=== PATIENT | female | born 1990 | race Caucasian/White ===

== ENCOUNTER 2016-07-19 10:52 | Emergency (ER) | payer SELFPAY ==
[~2016-07-19] VITALS: Ht 157.5 cm; Wt 92.0 kg
[~2016-07-19 10:52] MED LIST: ACET325S8 PO
[2016-07-19 11:01] VITALS: BP 201/127; PULSE 62; RESP 16; TEMP 97.9; O2SAT 98
[2016-07-19] MEDS ORDERED: DEXAMETHASONE SOD PHOS 20 MG/5 ML VIAL IM ONE (11:30)
[2016-07-19] MEDS ORDERED: diphenhydrAMINE HCL 50 MG CAP PO ONE (11:30)
[2016-07-19] MEDS ORDERED: FAMOTIDINE 20 MG TAB PO ONE (11:30)
[2016-07-19] MEDS ORDERED: BENA25TA3 PO (11:31)
[2016-07-19] MEDS ORDERED: FAMO1TAB37 PO (11:31)
[2016-07-19] MEDS ORDERED: PRED20 PO (11:31)
[2016-07-19] MEDS ORDERED: EPIP0.3I SQ (11:31)
--- NOTE | 2016-07-19 11:31 | PD ---
HPI Chief Complaint: Allergic/Adverse Reaction Time Seen by Provider: 11:16 Travel History International Travel<30 days: No Contact w/Intl Traveler<30days: No Traveled to known affect area: No History of Present Illness HPI Patient is a 25-year-old female who presents to emergency room with complaints of allergic reaction to face. Patient reports that she has very sensitive skin , reports that she brought "natural facemask" from [employer] yesterday and applied this to her face. Patient reports that she woke up this morning with swollen eyes and a swollen face. Reports no vision changes or any drainage from her eyes. Patient denies any respiratory compromise, reports that she does not feel short of breath, she does not feel as if her throat is closing in on her. Reports that she has not used any new products other than this facemask. Patient denies taking any Benadryl prior to arrival to his room. PFSH Past Medical History Medical History: Denies Significant Hx Diminished Hearing: No ?: Not LMP: 06/19/16 : 0 Para: 0 Miscarriage: 0 : 0 Past Surgical History Surgical History: No Previous Surgery Family History Family History: Negative Social History Alcohol Use: No Tobacco Use: No Substance Use: No Allergies-Medications (Allergen,Severity, Reaction): Coded Allergies: No Known Allergies (Unverified , 07/19/16) Reported Meds & Prescriptions Reported Meds & Active Scripts Active Epipen 2-Trent Inj (Epinephrine) 0.3 Mg/0.3 Ml Pfpen 0.3 Mg SQ ONCE PRN Pepcid (Famotidine) 20 Mg Tab 20 Mg PO BID 5 Days Benadryl Allergy (Diphenhydramine HCl) 25 Mg Tab 25 Mg PO Q6H PRN 5 Days Prednisone 20 Mg Tab 20 Mg PO BID 5 Days Review of Systems General / Constitutional: No: Fever Eyes: No: Visual changes HENT: No: Headaches Cardiovascular: No: Chest Pain or Discomfort Respiratory: No: Shortness of Breath Gastrointestinal: No: Abdominal Pain Genitourinary: No: Dysuria Musculoskeletal: No: Pain Skin: Positive Rash, Positive Itching Neurologic: No: Weakness Psychiatric: No: Depression Endocrine: No: Polydipsia Hematologic/Lymphatic: No: Easy Bruising Physical Exam Narrative GENERAL: No acute distress, nontoxic SKIN: Warm and dry. Patient with erythema throughout face, patient with mild edema to right eyelid. Patient with no drainage, no particular purpura. HEAD: Atraumatic. Normocephalic. EYES: Pupils equal and round. No scleral icterus. No injection or drainage. ENT: No nasal bleeding or discharge. Mucous membranes pink and moist. Uvula midline with no swelling. Posterior pharynx with no swelling. Patient with no respiratory distress, patient talking in full sentences and not drooling on exam NECK: Trachea midline. No JVD. CARDIOVASCULAR: Regular rate and rhythm. No murmur appreciated. RESPIRATORY: No accessory muscle use. Clear to auscultation. Breath sounds equal bilaterally. GASTROINTESTINAL: Abdomen soft, non-tender, nondistended. Hepatic and splenic margins not palpable. MUSCULOSKELETAL: No obvious deformities. No clubbing. No cyanosis. No edema. NEUROLOGICAL: Awake and alert.. Normal speech. PSYCHIATRIC: Appropriate mood and affect; insight and judgment normal. Data Data Last Documented VS Vital Signs Date Time Temp Pulse Resp B/P Pulse Ox O2 Delivery O2 Flow Rate FiO2 07/19/16 11:01 97.9 62 16 201/127 98 Orders Dexamethasone Inj (Decadron Inj) (07/19/16 11:30) Diphenhydramine (Benadryl) (07/19/16 11:30) Famotidine (Pepcid) (07/19/16 11:30) [facility] Medical Decision Making Medical Screen Exam Complete: Yes Emergency Medical Condition: Yes Interpretation(s) Vital Signs Date Time Temp Pulse Resp B/P Pulse Ox O2 Delivery O2 Flow Rate FiO2 07/19/16 11:01 97.9 62 16 201/127 98 Differential Diagnosis Allergic reaction Narrative Course Patient is a 25-year-old female who presents to emergency room with complaints of allergic reaction to her face after using home face mask last night. Patient woke up with increased swelling and redness throughout her face. Patient's with no airway compromise. Patient talking in full sentences, not drooling - no respiratory distress. On evaluation, patient does have erythema throughout her face, there is no periorbital edema. Will give patient steroids as well as Benadryl and Pepcid. Plan to monitor patient and then will reevaluate patient. Patient reevaluated, patient with decreased erythema and swelling to face. Patient with no respiratory compromise, patient was rapidly resolving symptoms. Patient will be discharged with instructions to follow-up with her primary care doctor as well as welder repair. Signs and symptoms of when to return to the emergency room was reviewed patient. Instructions were given to patient and had a use EpiPen, patient understands need to go to nearest emergency room if she administers this medication to herself. Diagnosis Primary Impression: Allergic reaction Qualified Code: T78.40XA - Allergic reaction, initial encounter Patient Instructions: General Instructions Departure Forms: Tests/Procedures, Work Release Enter return to work date: Jul 21, 2016 Additional Instructions: Please take all medications as prescribed Return to the emergency room if symptoms worsen or progress Please follow-up with an welder repair as soon as possible Please follow-up with your primary care doctor Return to emergency room immediately if you administer EpiPen to yourself as you will need cardiac monitoring. Do not use face mask again Med/Other Pt SpecificInfo: Prescription(s) given Scripts Epinephrine Inj (Epipen 2-Trent Inj)0.3 Mg/0.3 Ml Pfpen0.3 Mg SQ ONCE PRN ( ALLERGIC REACTION) #1 PACK Ref 0 Prov:Ly Delatorre DO 07/19/16 Famotidine (Pepcid)20 Mg Tab20 Mg PO BID 5 Days Ref 0 Prov:Ly Delatorre DO 07/19/16 Diphenhydramine (Benadryl Allergy)25 Mg Tab25 Mg PO Q6H PRN (ALLERGIES) 5 Days Ref 0 Prov:Ly Delatorre DO 07/19/16 Prednisone 20 Mg Tab20 Mg PO BID 5 Days Ref 0 Prov:Ly Delatorre DO 07/19/16 Disposition: 01 DISCHARGE HOME Condition: Stable Ly Delatorre DO Jul 19, 2016 11:31
[2016-07-19 12:59] VITALS: BP 200/113
[2016-07-27] MEDS ORDERED: SYNT25TA PO ×2 (14:49→14:51)
[2016-07-27] MEDS ORDERED: HYDR50TA15 PO ×2 (14:49→14:51)
[2016-07-27] MEDS ORDERED: CARD180C5 PO ×2 (14:49→14:51)
[2016-07-27] MEDS ORDERED: POTA20TA5 PO ×2 (14:49→14:51)
[2016-07-27] MEDS ORDERED: LIPI40TA PO ×2 (14:49→14:51)
== END 2016-07-19 13:00 | disposition home or self-care (01) ==
LOC: PHED 10:52
DX: T78.40XA Allergy, unspecified, initial encounter (principal); R22.9 Localized swelling, mass and lump, unspecified; X58.XXXA Exposure to other specified factors, initial encounter
CPT/HCPCS: 96372; 99283; J1100; Q0163

== ENCOUNTER 2016-07-19 20:26 | Inpatient (IN) | payer SELFPAY ==
[~2016-07-19] VITALS: Ht 157.5 cm; Wt 97.4 kg
[~2016-07-19 20:26] MED LIST changes: +BENA25TA3 PO; +EPIP0.3I SQ; +FAMO1TAB37 PO; +PRED20 PO
[2016-07-19 20:38] VITALS: BP 208/130; PULSE 105; RESP 18; TEMP 98.4; O2SAT 97
[2016-07-19 21:38] VITALS: RESP 18; O2SAT 97
[2016-07-19] MEDS ORDERED: SODIUM CHLORIDE 0.9% FLUSH 5 ML FLUSH IVF PRN (21:45)
[2016-07-19] MEDS ORDERED: LORazepam 2 MG/ML VIAL IV PUSH ONE (21:45)
--- NOTE | 2016-07-19 22:09 | PD ---
HPI . Weakness Chief Complaint: General Weakness Time Seen by Provider: 21:22 Travel History International Travel<30 days: No Contact w/Intl Traveler<30days: No Traveled to known affect area: No History of Present Illness HPI Patient presents with the acute onset of weakness. She states this started about 7:30 tonight. She states that she cannot walk. She states that she cannot extend her wrist. Patient was seen earlier today with a localized allergic reaction to her face. She was treated with Benadryl, steroids and Pepcid. Patient reports a known history of high blood pressure but is noncompliant with her medication. [facility] Past Medical History Diminished Hearing: No Hypertension: Yes Immunizations Current: Yes Tetanus Vaccination: Unknown Influenza Vaccination: No ?: Not LMP: Jun : 0 Para: 0 Miscarriage: 0 : 0 Social History Alcohol Use: Yes Tobacco Use: No Substance Use: No Allergies-Medications (Allergen,Severity, Reaction): Uncoded Allergies: PERFUME (Allergy, Severe, Anaphylaxis, 07/19/16) Reported Meds & Prescriptions Reported Meds & Active Scripts Active Epipen 2-Trent Inj (Epinephrine) 0.3 Mg/0.3 Ml Pfpen 0.3 Mg SQ ONCE PRN Pepcid (Famotidine) 20 Mg Tab 20 Mg PO BID 5 Days Benadryl Allergy (Diphenhydramine HCl) 25 Mg Tab 25 Mg PO Q6H PRN 5 Days Prednisone 20 Mg Tab 20 Mg PO BID 5 Days Review of Systems Except as stated in HPI: all other systems reviewed are Neg General / Constitutional: No: Fever, Chills Eyes: No: Blurred Vision Cardiovascular: No: Chest Pain or Discomfort Respiratory: No: Shortness of Breath Neurologic: Positive: Weakness, No: Change in Mentation, Slurred Speech Physical Exam Narrative GENERAL: Patient is awake and alert and does not appear to be in any acute distress. SKIN: Warm and dry. HEAD: Atraumatic. Normocephalic. EYES: Pupils equal and round. ENT: No nasal bleeding or discharge. Mucous membranes pink and moist. NECK: Trachea midline. Neck is supple. CARDIOVASCULAR: Regular rate and rhythm. Heart sounds are normal. RESPIRATORY: No accessory muscle use. Lungs are clear with full air movement throughout. GASTROINTESTINAL: Abdomen soft, non-tender, nondistended. MUSCULOSKELETAL: No obvious deformities. No edema. NEUROLOGICAL: Awake and alert. No obvious cranial nerve deficits. She will not extend her wrist. She will not extend her thumbs. She will not abduct her fingers against resistance. She exhibits weakness of the biceps, triceps and trapezius muscles. She can left her legs up off the bed but can only hold them there for a couple seconds. Normal speech. PSYCHIATRIC: Appropriate mood and affect; insight and judgment normal. Data Data Last Documented VS Vital Signs Date Time Temp Pulse Resp B/P Pulse Ox O2 Delivery O2 Flow Rate FiO2 07/19/16 23:34 98 18 96 Room Air 07/19/16 23:34 196/109 07/19/16 20:38 98.4 Orders Electrocardiogram (07/19/16 21:33) Ed Urine Pregnancytest Poc (07/19/16 21:33) Complete Blood Count With Diff (07/19/16 21:33) Comprehensive Metabolic Panel (07/19/16 21:33) Urinalysis - C+S If Indicated (07/19/16 21:33) Ct Brain W/O Iv Contrast(Rout) (07/19/16 21:33) Ecg Monitoring (07/19/16 21:33) Iv Access Insert/Monitor (07/19/16 21:33) Oximetry (07/19/16 21:33) Sodium Chloride 0.9% Flush (Ns Flush) (07/19/16 21:45) Lorazepam Inj (Ativan Inj) (07/19/16 21:45) Cath For Specimen (07/19/16 21:40) Captopril-Hctz 25-15 Mg (Capozide 25-15 (07/19/16 22:15) Urine Culture (07/19/16 22:20) Ceftriaxone Inj (Rocephin Inj) (07/19/16 23:45) Potassium Chlor 20 Meq Premix (Kcl 20 Me (07/20/16 00:00) Potassium Chloride (Kcl) (07/20/16 00:15) Admit Order (Ed Use Only) (07/20/16 00:21) Morphine Inj (Morphine Inj) (07/20/16 00:30) Labs Laboratory Tests Test 07/19/16 07/19/16 22:05 22:20 White Blood Count 7.6 TH/MM3 Red Blood Count 5.62 MIL/MM3 Hemoglobin 14.7 GM/DL Hematocrit 46.2 % Mean Corpuscular Volume 82.2 FL Mean Corpuscular Hemoglobin 26.1 PG Mean Corpuscular Hemoglobin 31.8 % Concent Red Cell Distribution Width 13.0 % Platelet Count 338 TH/MM3 Mean Platelet Volume 10.1 FL Neutrophils (%) (Auto) 88.6 % Lymphocytes (%) (Auto) 7.8 % Monocytes (%) (Auto) 2.5 % Eosinophils (%) (Auto) 0.7 % Basophils (%) (Auto) 0.4 % Neutrophils # (Auto) 6.7 TH/MM3 Lymphocytes # (Auto) 0.6 TH/MM3 Monocytes # (Auto) 0.2 TH/MM3 Eosinophils # (Auto) 0.1 TH/MM3 Basophils # (Auto) 0.0 TH/MM3 CBC Comment DIFF FINAL Differential Comment Sodium Level 142 MEQ/L Potassium Level 1.7 MEQ/L Chloride Level 99 MEQ/L Carbon Dioxide Level 32.5 MEQ/L Anion Gap 11 MEQ/L Blood Urea Nitrogen 18 MG/DL Creatinine 0.99 MG/DL Estimat Glomerular Filtration 69 ML/MIN Rate Random Glucose 222 MG/DL Calcium Level 9.8 MG/DL Total Bilirubin 0.4 MG/DL Aspartate Amino Transf 19 U/L (AST/SGOT) Alanine Aminotransferase 27 U/L (ALT/SGPT) Alkaline Phosphatase 84 U/L Total Protein 8.1 GM/DL Albumin 3.8 GM/DL Urine Collection Type VOIDED Urine Color YELLOW Urine Turbidity CLOUDY Urine pH 6.5 Urine Specific [place] 1.026 Urine Protein 300 OR GREATER mg/dL Urine Glucose (UA) 250 mg/dL Urine Ketones TRACE mg/dL Urine Occult Blood MOD Urine Nitrite NEG Urine Bilirubin NEG Urine Leukocyte Esterase NEG Urine WBC 3-5 /hpf Urine WBC Clumps OCC Urine Squamous Epithelial >8 /hpf Cells Urine Transitional Epithelial 0-5 /hpf Cells Urine Bacteria MOD /hpf Microscopic Urinalysis Comment CULTURE INDICATED MDM Medical Decision Making Medical Screen Exam Complete: Yes Emergency Medical Condition: Yes Interpretation(s) EKG shows a sinus rhythm. She has left ventricular hypertrophy. She has no old EKGs for comparison. Differential Diagnosis Differential diagnosis of weakness includes but is not limited to infection, CVA , electrolyte disturbance, renal failure, hypoglycemia, UTI, ACS Narrative Course Patient presents with acute muscular weakness. She reports that she is too weak to move her hand but is noted to be using her cell phone without any apparent weakness. CBC & BMP Diagram 07/19/16 22:05 Catheter UA shows moderate bacteria, WBC clumps. Culture is pending. Rocephin has been ordered. I have no explanation for the hypokalemia. She is not on any medications that would cause hypokalemia. She does not report any vomiting or diarrhea. 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 Physician Communication Physician Communication Dr. Baker will admit. Diagnosis Primary Impression: Weakness Additional Impressions: Hypertension Qualified Code: I10 - Essential hypertension Hypokalemia Admitting Information Admitting Physician Requests: Admit Condition: Stable Jenelle Hernandez MD Jul 19, 2016 22:09
[2016-07-19] MEDS ORDERED: CAPTOPRIL PO ONE (22:15)
[2016-07-19] MEDS ORDERED: HYDROCHLOROTHIAZIDE PO ONE (22:15)
[2016-07-19 22:26] VITALS: BP 207/116; PULSE 90; RESP 18; O2SAT 97
[2016-07-19 22:41] LABS: AUTOMATED NEUTROPHIL # 6.7 TH/MM3 (1.8-7.7); BASOPHIL % 0.4 % (0.0-2.0); EOSINOPHIL # 0.1 TH/MM3 (0-0.4); EOSINOPHIL % 0.7 % (0.0-4.0); HEMATOCRIT 46.2 % (35.0-46.0); HEMO FLAGS DIFF FINAL; LYMPH % 7.8 % (9.0-44.0); LYMPHOCYTE # 0.6 TH/MM3 (1.0-4.8); MEAN CELL VOLUME 82.2 FL (80.0-100.0); MEAN CORPUSCULAR HEMOGLOBIN 26.1 PG (27.0-34.0); MEAN CORPUSCULAR HGB CONC 31.8 % (32.0-36.0); MONO % 2.5 % (0.0-8.0); NEUT % 88.6 % (16.0-70.0); PLATELET COUNT 338 TH/MM3 (150-450); RED BLOOD COUNT 5.62 MIL/MM3 (4.00-5.30); WHITE BLOOD COUNT 7.6 TH/MM3 (4.0-11.0)
[2016-07-19 22:41] LABS: GLUCOSE,URINE 250 mg/dL (NEG); KETONE, URINE TRACE mg/dL (NEG); NITRITE,URINE NEG (NEG); PH, URINE 6.5 (5.0-8.5)
[2016-07-19 22:48] LABS: BLOOD, URINE MOD (NEG)
[2016-07-19 22:54] LABS: METHOD OF COLLECTION VOIDED; URINE COLOR YELLOW (YELLW/STRAW)
[2016-07-19 22:57] LABS: BACTERIA, URINE MOD /hpf; SQUAMOUS EPITHELIAL CELL URINE >8 /hpf (0-5); TRANSITIONAL EPI CELLS, URINE 0-5 /hpf
[2016-07-19 22:58] LABS: COMMENT (UR) CULTURE INDICATED; CULTURE IF INDICATED CULTURE INDICATED
[2016-07-19 23:34] VITALS: BP 196/109; PULSE 98; RESP 18; O2SAT 96
[2016-07-19 23:35] LABS: ALKALINE PHOSPHATASE 84 U/L (45-117); ALT (GPT) 27 U/L (10-53); ANION GAP 11 MEQ/L (5-15); AST (GOT) 19 U/L (15-37); BICARBONATE 32.5 MEQ/L (21.0-32.0); BLOOD UREA NITROGEN 18 MG/DL (7-18); CHLORIDE 99 MEQ/L (98-107); GLOMERULAR FILTRATION RATE 69 ML/MIN (>89); SODIUM (NA) 142 MEQ/L (136-145); TOTAL BILIRUBIN ADULT 0.4 MG/DL (0.2-1.0)
[2016-07-19 23:37] LABS: POTASSIUM 1.7 MEQ/L (3.5-5.1)
--- NOTE | 2016-07-19 23:42 | RADHPO ---
EXAM DATE/TIME: 07/19/2016 22:48 [facility] COMPARISON: No previous studies available for comparison. INDICATIONS : Dizziness. Weakness. RADIATION DOSE: 62.60 CTDIvol (mGy) MEDICAL HISTORY : Hypertension. SURGICAL HISTORY : None. ENCOUNTER: Initial ACUITY: 1 day PAIN SCALE: 5/10 LOCATION: cranial TECHNIQUE: Multiple contiguous axial images were obtained of the head. Using automated exposure control and adj ustment of the mA and/or kV according to patient size, radiation dose was kept as low as reasonably a chievable to obtain optimal diagnostic quality images. FINDINGS: CEREBRUM: The ventricles are normal for age. No evidence of midline shift, mass lesion, hemorrhage or acute in farction. No extra-axial fluid collections are seen. POSTERIOR FOSSA: The cerebellum and brainstem are intact. The 4th ventricle is midline. The cerebellopontine angle i s unremarkable. EXTRACRANIAL: The visualized portion of the orbits is intact. SKULL: The calvaria is intact. No evidence of skull fracture. CONCLUSION: 1. No evidence of acute intracranial pathology. No masses are identified. Sterling Zhong MD on July 19, 2016 at 23:40 Board Certified Radiologist. This report was verified electronically.
[2016-07-19] MEDS ORDERED: cefTRIAXone INJ 1,000 MG in SODIUM CHLORIDE 0.9% INJ 100 ML IV ONE (23:45)
[2016-07-20] VITALS (7 sets, daily range): BP systolic 167–205; BP diastolic 102–133; PULSE 68–102; RESP 16–20; TEMP 97.6–98.4; O2SAT 76–100
[2016-07-20] MEDS ORDERED: POTASSIUM CHLOR 20 MEQ PREMIX 100 ML IV ONE
[2016-07-20] MEDS ORDERED: POTASSIUM CHLORIDE 20 MEQ CONTROLLED RELEASE TAB PO ONE ×2 (00:15→13:15)
[2016-07-20] MEDS ORDERED: MAGNESIUM SULFATE 1 GM PREMIX 100 ML IV ONE (00:30)
[2016-07-20] MEDS ORDERED: POTASSIUM CHLORIDE 25 MEQ EFFERVESCENT TAB PO ONE (00:30)
[2016-07-20] MEDS ORDERED: POTASSIUM CHLOR 20 MEQ PREMIX 100 ML IV SCH (00:30)
[2016-07-20] MEDS ORDERED: SODIUM CHLORIDE 0.9% FLUSH 5 ML FLUSH FLUSH PRN (00:30)
[2016-07-20] MEDS ORDERED: NALOXONE HCL 0.4 MG/ML AMP IV PRN (00:30)
[2016-07-20] MEDS ORDERED: MORPHINE SULFATE 4 MG/ML INJ IV ONE (00:30)
[2016-07-20] MEDS: POTASSIUM CHLOR 20 MEQ PREMIX 100 ML IV SCH ×4 (03:21→15:15)
[2016-07-20 03:58] LABS: MAGNESIUM 2.5 MG/DL (1.5-2.5)
[2016-07-20] MEDS: SODIUM CHLORIDE 0.9% FLUSH 5 ML FLUSH FLUSH SCH ×2 (10:30→20:52)
[2016-07-20] MEDS: NITROFURANTOIN MONOHYD MACROCR 100 MG CAP PO SCH ×2 (10:30→18:32)
[2016-07-20] MEDS ORDERED: cloNIDine HCL 0.1 MG TAB PO ONE (12:45)
[2016-07-20] MEDS ORDERED: cloNIDine HCL 0.1 MG TAB PO PRN (13:30)
--- NOTE | 2016-07-20 13:50 | HHI.HP ---
[facility] No Primary Care Physician Admission Diagnosis periodic hypokalemic paralysis Diagnoses: Travel History International Travel<30 Days: No Contact w/Intl Traveler <30 Da: No Traveled to Known Affected Are: No History of Present Illness This is a pleasant 25-year-old female with past medical history of hypertension who presented to the ER today after awaking from a nap and findings that her hands and legs were weak. She was able to walk with assistance from her boyfriend. Of note the patient had been in the ER this morning for an allergic reaction that she thinks is from wearing a mask. She was observed in the emergency department and given steroids, Pepcid and Benadryl. She was then discharged home. She took a nap and woke with the above symptoms. She denied any slurred speech, unilateral weakness or paresthesias. Nothing like this has ever happened to her before. The patient was diagnosed with high blood pressure in the same ER 2 years ago but does not have health insurance and has not taken anything for her hypertension. She has never been told that she has hypokalemia. The patient does not see a doctor, last time she was seen by . was in the ER 2 years ago. In the emergency department she was found to have severe hypokalemia with potassium of 1.7. Magnesium level was normal. She was given IV potassium and by mouth potassium. Her potassium has improved to 2.4 and her symptoms of weakness of now resolved. The patient denies any nausea, vomiting, diarrhea. She states that she eats a good diet and plenty of bananas. She does not take any diuretics or anything [id number] other than ibuprofen. There is no family history of hypokalemia or transient paralysis per the patient 's knowledge. She does snore at night but the boyfriend has not noticed any apnea. She denies morning headaches. Review of Systems Constitutional: DENIES: Fever, Chills Eyes: DENIES: Diplopia, Eye pain Ears, nose, mouth, throat: DENIES: Throat pain, Hoarseness Respiratory: DENIES: Cough, Shortness of breath Cardiovascular: DENIES: Chest pain, Palpitations Gastrointestinal: DENIES: Abdominal pain, Diarrhea, Vomiting Genitourinary: DENIES: Hematuria, Dysuria Musculoskeletal: DENIES: Back pain, Neck pain Hematologic/lymphatic: DENIES: Lymphadenopathy Neurologic: DENIES: Headache, Paresthesias, Seizures Psychiatric: DENIES: Anxiety, Confusion Past Family Social History Past Medical History Hypertension She was treated for Lyme's disease as a child at age 11 with one month of doxycycline apparently had fevers and the bull's-eye rash on her lower back Past Surgical History No past surgical history Allergies Uncoded Allergies Type Severity Reaction Last Updated Verified PERFUME Allergy Severe Anaphylaxis 07/19/16 Active Scripts Medications Dose Route/Sig Days Date Category Reported Medications Allergies Uncoded Allergies Type Severity Reaction Last Updated Verified PERFUME Allergy Severe Anaphylaxis 07/19/16 Active Scripts Medications Dose Route/Sig Days Date Category Allergies: Uncoded Allergies: PERFUME (Allergy, Severe, Anaphylaxis, 07/19/16) Family History Her mother has a seizure disorder Social History No alcohol tobacco or drug use. She has boyfriend. She works at [employer]. Physical Exam Vital Signs Vital Signs Date Time Temp Pulse Resp B/P Pulse Ox O2 Delivery O2 Flow Rate FiO2 07/20/16 12:00 98.4 81 18 205/133 97 07/20/16 08:30 97.6 68 18 199/124 98 07/20/16 07:15 16 Room Air 07/20/16 07:15 98.1 74 16 167/102 100 Room Air 07/20/16 05:45 68 18 172/102 95 Room Air 07/20/16 05:45 68 18 95 Room Air 07/20/16 03:41 95 18 178/108 96 Room Air 07/20/16 03:41 95 18 96 Room Air 07/20/16 01:57 18 07/20/16 01:38 102 18 96 Room Air 07/20/16 01:38 102 18 183/110 96 Room Air 07/19/16 23:34 98 18 96 Room Air 07/19/16 23:34 98 18 196/109 96 Room Air 07/19/16 22:26 90 18 207/116 97 Room Air 07/19/16 21:38 18 97 Room Air 07/19/16 21:27 105 18 97 Room Air 07/19/16 20:38 98.4 105 18 208/130 97 Physical Exam GENERAL: A very pleasant, Well-nourished, well-developed obese young adult female patient. SKIN: Warm and dry. No excessive hirsutism. HEAD: Normocephalic. EYES: No scleral icterus. No injection or drainage. NECK: Supple, trachea midline. No JVD or lymphadenopathy. CARDIOVASCULAR: Regular rate and rhythm without murmurs, gallops, or rubs. RESPIRATORY: Breath sounds equal bilaterally. No accessory muscle use. GASTROINTESTINAL: Abdomen soft, non-tender, nondistended. EXTREMITIES: No cyanosis, or edema. NEUROLOGICAL: Awake, alert, and oriented x 3. Non-focal. Laboratory Laboratory Tests Test 07/19/16 07/19/16 07/20/16 07/20/16 22:05 22:20 03:30 09:10 White Blood Count 7.6 Red Blood Count 5.62 Hemoglobin 14.7 Hematocrit 46.2 Mean Corpuscular Volume 82.2 Mean Corpuscular Hemoglobin 26.1 Mean Corpuscular Hemoglobin 31.8 Concent Red Cell Distribution Width 13.0 Platelet Count 338 Mean Platelet Volume 10.1 Neutrophils (%) (Auto) 88.6 Lymphocytes (%) (Auto) 7.8 Monocytes (%) (Auto) 2.5 Eosinophils (%) (Auto) 0.7 Basophils (%) (Auto) 0.4 Neutrophils # (Auto) 6.7 Lymphocytes # (Auto) 0.6 Monocytes # (Auto) 0.2 Eosinophils # (Auto) 0.1 Basophils # (Auto) 0.0 CBC Comment DIFF FINAL Differential Comment Sodium Level 142 Potassium Level 1.7 2.0 2.4 Chloride Level 99 Carbon Dioxide Level 32.5 Anion Gap 11 Blood Urea Nitrogen 18 Creatinine 0.99 Estimat Glomerular Filtration 69 Rate Random Glucose 222 Calcium Level 9.8 Total Bilirubin 0.4 Aspartate Amino Transf 19 (AST/SGOT) Alanine Aminotransferase 27 (ALT/SGPT) Alkaline Phosphatase 84 Total Protein 8.1 Albumin 3.8 Urine Collection Type VOIDED Urine Color YELLOW Urine Turbidity CLOUDY Urine pH 6.5 Urine Specific [place] 1.026 Urine Protein 300 OR GREATER Urine Glucose (UA) 250 Urine Ketones TRACE Urine Occult Blood MOD Urine Nitrite NEG Urine Bilirubin NEG Urine Leukocyte Esterase NEG Urine WBC 3-5 Urine WBC Clumps OCC Urine Squamous Epithelial >8 Cells Urine Transitional Epithelial 0-5 Cells Urine Bacteria MOD Microscopic Urinalysis Comment CULTURE INDICATED Magnesium Level 2.5 Date/Time Procedure Status Source Growth 07/19/16 22:20 Urine Culture Received Urine Random Urine Pending Result Diagram: 07/19/16220407/20/16 0910 Imaging Last Impressions Head CT 07/19/162132 Signed Impressions: Service Date/Time: Tuesday, July 19, 2016 22:48 - CONCLUSION: 1. No evidence of acute intracranial pathology. No masses are identified. Sterling Zhong MD Assessment and Plan Problem List: (1) Hypokalemia ICD Code: E87.6 Status: Acute (2) Hypertension ICD Code: I10 Status: Acute Assessment and Plan -Severe hypokalemia with hypertension. Will need a workup for secondary causes of hypertension as we continue to replete her potassium. Will order CTA of the abdomen to evaluate for renal artery stenosis, serum catecholamines and metanephrines, 24-hour urine cortisol, plasma renin and aldosterone levels in the morning. We'll start her on hydralazine and Cardizem for the blood pressure. 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 I will ask case management for assistance in getting the patient a blue card. The patient does not have health insurance currently but states that she is planning to apply for through [employer]. -DVT prophylaxis with SCDs. Problem Qualifiers (1) Hypertension: Qualified Code: I10 - Essential hypertension Pratibha Diaz MD Jul 20, 2016 13:50
[2016-07-20] MEDS: hydrALAZINE HCL 50 MG TAB PO SCH ×2 (14:02→20:51)
[2016-07-20 18:26] LABS: POTASSIUM 2.4 MEQ/L (3.5-5.1)
[2016-07-20] MEDS: DILTIAZEM HCL 60 MG TAB PO SCH ×2 (18:32→20:48)
--- NOTE | 2016-07-20 22:56 | EKG ---
Date Performed: 07/19/2016 Time Performed: 21:52:26 PTAGE: 25 years EKG: Sinus rhythm Prolonged QT interval Inferior infarct - age undetermined Left ventricular hypertrophy Lateral ST-T changes are probably due to ventricular hypertrophy Abnormal ECG NO PREVIOUS TRACING DOCTOR: Dwight Miller Interpretating Date/Time 07/20/2016 22:54:14
[2016-07-21] VITALS (8 sets, daily range): BP systolic 143–167; BP diastolic 92–111; PULSE 72–100; RESP 15–20; TEMP 96.9–98.6; O2SAT 95–99
[2016-07-21] MEDS ORDERED: diphenhydrAMINE HCL 25 MG CAP PO ONE (01:00)
[2016-07-21] MEDS ORDERED: POTASSIUM CHLORIDE 20 MEQ CONTROLLED RELEASE TAB PO ONE (01:00)
[2016-07-21] MEDS: hydrALAZINE HCL 50 MG TAB PO SCH ×3 (06:11→22:44)
[2016-07-21 06:24] LABS: AUTOMATED NEUTROPHIL # 7.3 TH/MM3 (1.8-7.7); BASOPHIL # 0.1 TH/MM3 (0-0.2); BASOPHIL % 0.6 % (0.0-2.0); EOSINOPHIL # 0.2 TH/MM3 (0-0.4); EOSINOPHIL % 1.6 % (0.0-4.0); HEMATOCRIT 36.8 % (35.0-46.0); HEMO FLAGS DIFF FINAL; LYMPH % 27.9 % (9.0-44.0); LYMPHOCYTE # 3.2 TH/MM3 (1.0-4.8); MEAN CELL VOLUME 80.9 FL (80.0-100.0); MEAN CORPUSCULAR HEMOGLOBIN 27.9 PG (27.0-34.0); MEAN CORPUSCULAR HGB CONC 34.5 % (32.0-36.0); MONO % 6.7 % (0.0-8.0); NEUT % 63.2 % (16.0-70.0); PLATELET COUNT 264 TH/MM3 (150-450); RED BLOOD COUNT 4.55 MIL/MM3 (4.00-5.30); RED CELL DISTRIBUTION WIDTH 12.8 % (11.6-17.2); WHITE BLOOD COUNT 11.6 TH/MM3 (4.0-11.0)
[2016-07-21 06:46] LABS: BICARBONATE 34.8 MEQ/L (21.0-32.0)
[2016-07-21 06:49] LABS: POTASSIUM 2.7 MEQ/L (3.5-5.1)
[2016-07-21] MEDS ORDERED: POTASSIUM CHLORIDE 10 MEQ CONTROLLED RELEASE TAB PO ONE ×2 (07:00→08:30)
[2016-07-21] MEDS: DILTIAZEM HCL 60 MG TAB PO SCH ×4 (09:09→22:44)
[2016-07-21] MEDS: NITROFURANTOIN MONOHYD MACROCR 100 MG CAP PO SCH ×2 (09:09→18:45)
[2016-07-21] MEDS: SODIUM CHLORIDE 0.9% FLUSH 5 ML FLUSH FLUSH SCH ×2 (09:09→22:44)
[2016-07-21] MEDS: POTASSIUM CHLOR 20 MEQ PREMIX 100 ML IV SCH ×2 (09:10→10:30)
[2016-07-21] MEDS ORDERED: IOHEXOL 350 MG/ML 10 ML VIAL (for RAD DIAG) IV ONE (09:35)
--- NOTE | 2016-07-21 09:53 | RADHPO ---
EXAM DATE/TIME: 07/21/2016 08:06 [facility] COMPARISON: CT BRAIN W/O CONTRAST, July 19, 2016, 22:48. INDICATIONS : Renal disease. Evaluate for renal stenosis. IV CONTRAST: 85 cc Omnipaque 350 (iohexol) IV RADIATION DOSE: 8.85 CTDIvol (mGy) MEDICAL HISTORY : Hypertension. SURGICAL HISTORY : None. ENCOUNTER: Initial ACUITY: 4 - 6 days PAIN SCALE: 2/10 LOCATION: Abdomen. TECHNIQUE: Volumetric scanning was performed using a multi-row detector CT scanner. The data was post processed with a variety of visualization algorithms including full volume maximum intensity projection, multi -planar sliding thin slab reformation, curved planar reformation, and surface rendering techniques. Using automated exposure control and adjustment of the mA and/or kV according to patient size, radiat ion dose was kept as low as reasonably achievable to obtain optimal diagnostic quality images. FINDINGS: Abdominal aorta: The celiac, SMA and CLAIRE are widely patent. The infrarenal aorta is normal in caliber. There is no ath erosclerotic plaquing. Renal arteries: There are accessory renal arteries bilaterally. There are 2 renal arteries on the right and 3 renal a rteries on the left. All of the renal arteries are widely patent bilaterally. Pelvis: The visualized portion of iliac circulation is widely patent. CT source data: The examination demonstrates a 2.4 x 3.0 cm low attenuation left adrenal mass. This measures on avera ge of 29 Hounsfield units. The well circumscribed nature of this low attenuation would suggest it rep resents a benign adenoma however at 29 Hounsfield units this is indeterminate and MRI imaging is lars anted for more definitive assessment. The solid organs of the abdomen are otherwise intact. There is no retroperitoneal lymphadenopathy. No free air or free fluid is seen. The bony structures are intact . CONCLUSION: 1. 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 The renal arteries are widely patent. There is no significant renal artery stenosis. 2. 2.3 x 3.0 cm left adrenal mass likely representing an adrenal adenoma. Please see above discussion . Abad Alicia MD on July 21, 2016 at 9:43 Board Certified Radiologist. This report was verified electronically.
[2016-07-21] MEDS ORDERED: INFLUENZA VIRUS VACCINE (QUADRIVALENT) 0.5 ML SYR IM ONE (10:00)
[2016-07-21] MEDS ORDERED: GADODIAMIDE PF 287 MG/ML 20 ML VIAL (for RAD MRI) IV ONE (14:46)
--- NOTE | 2016-07-21 15:09 | RADHPO ---
EXAM DATE/TIME: 07/21/2016 14:19 [place] COMPARISON: No previous studies available for comparison. INDICATIONS : Mass. Adrenal mass. Pheocromocytoma. CONTRAST: 19 cc Omniscan (gadodiamide) IV GFR: Date: Jul 21 2016 MEDICAL HISTORY : Hypertension. Lyme Disease. SURGICAL HISTORY : None. ENCOUNTER: Initial ACUITY: 1 day PAIN SCORE: 0/10 LOCATION: Abdomen. TECHNIQUE: Multiplanar, multisequence magnetic resonance imaging of the abdomen was performed without and with i ntravenous contrast. FINDINGS: LIVER: No focal parenchymal abnormalities. BILIARY: There is no intra- or extra-hepatic biliary ductal dilatation. Gallbladder contains no stones. SPLEEN: Within normal limits. PANCREAS: Within normal limits. ADRENALS: There is a 2.8 x 2.1 cm left adrenal mass which loses it signal on the out of phase images characteri stic of an adrenal adenoma. No KIDNEYS: Normal size and signal intensity. There is no hydronephrosis or mass. OTHER: Aorta is nonaneurysmal. There is no lymphadenopathy. CONCLUSION: 1. 2.8 cm left adrenal adenoma. Remainder of abdomen MRI unremarkable. Brenden Crenshaw MD on July 21, 2016 at 14:50 Board Certified Radiologist. This report was verified electronically.
--- NOTE | 2016-07-21 16:05 | PD.CONS ---
HPI Consult Requested By Reason for Consult Possible proteinuria Hypertension. Primary Care Physician No Primary Care Physician History of Present Illness 25-year-old female who indicated that she was diagnosed as having hypertension 2 years ago but unfortunately this was not treated as the patient indicated that she could not afford hypertensive medications. She presented to the hospital with profound weakness and was subsequently found to have a potassium level of 1.7. Also indication of metabolic alkalosis with a bicarbonate of 32.5. On questioning the patient she denies usage of diuretics as an outpatient or diet pills. No history of nausea or vomiting or diarrhea prior to admission. CTA performed to screen for renal artery stenosis showed no evidence of same however a 2.3 x 3 cm left adrenal mass was reported. Subsequently MRI was reported as showing a 2.8 cm adrenal adenoma on the left side. Patient had no prior knowledge of same. Review of Systems Constitutional: COMPLAINS OF: Fatigue Respiratory: DENIES: Wheezing, Sputum production, Shortness of breath Cardiovascular: DENIES: Chest pain, Palpitations, Syncope, Dyspnea on Exertion , PND, Lower Extremity Edema, Orthopnea, Claudication Gastrointestinal: DENIES: Abdominal pain, Black stools, Bloody stools, Constipation, Diarrhea, Nausea, Vomiting, Difficulty Swallowing, Anorexia Past Family Social History Allergies: Uncoded Allergies: PERFUME (Allergy, Severe, Anaphylaxis, 07/19/16) Past Medical History Hypertension. Noncompliance with hypertensive medications. Family History No known family history of secondary hypertension. No known family history of renal disease. Social History Denies illicit drug use. Physical Exam Vital Signs Vital Signs Date Time Temp Pulse Resp B/P Pulse Ox O2 Delivery O2 Flow Rate FiO2 07/21/16 13:05 97.1 95 15 143/102 95 07/21/16 08:33 96.9 74 15 147/94 98 07/21/16 04:00 97.4 72 20 158/92 96 07/21/16 02:22 76 07/21/16 00:00 97.3 90 20 167/105 99 07/20/16 20:00 97.8 90 20 185/120 98 Physical Exam GENERAL: Young female. Mother by bedside. Not in respiratory distress. SKIN: Warm and dry. HEAD: Normocephalic. EYES: No scleral icterus. No injection or drainage. NECK: Supple, trachea midline. No JVD or lymphadenopathy. CARDIOVASCULAR: Regular rate and rhythm without murmurs, gallops, or rubs. RESPIRATORY: Breath sounds equal bilaterally. No accessory muscle use. GASTROINTESTINAL: Abdomen soft, non-tender, nondistended. MUSCULOSKELETAL: No cyanosis, or edema. BACK: Nontender without obvious deformity. No CVA tenderness. Laboratory Laboratory Tests Test 07/20/16 07/21/16 07/21/16 07/21/16 17:50 00:00 06:05 12:25 Potassium Level 2.4 2.7 2.7 3.8 Total Creatine Kinase 52 White Blood Count 11.6 Red Blood Count 4.55 Hemoglobin 12.7 Hematocrit 36.8 Mean Corpuscular Volume 80.9 Mean Corpuscular Hemoglobin 27.9 Mean Corpuscular Hemoglobin 34.5 Concent Red Cell Distribution Width 12.8 Platelet Count 264 Mean Platelet Volume 9.3 Neutrophils (%) (Auto) 63.2 Lymphocytes (%) (Auto) 27.9 Monocytes (%) (Auto) 6.7 Eosinophils (%) (Auto) 1.6 Basophils (%) (Auto) 0.6 Neutrophils # (Auto) 7.3 Lymphocytes # (Auto) 3.2 Monocytes # (Auto) 0.8 Eosinophils # (Auto) 0.2 Basophils # (Auto) 0.1 CBC Comment DIFF FINAL Differential Comment Sodium Level 142 Chloride Level 99 Carbon Dioxide Level 34.8 Anion Gap 8 Blood Urea Nitrogen 12 Creatinine 0.55 Estimat Glomerular Filtration 136 Rate Random Glucose 102 Calcium Level 8.2 Magnesium Level 2.3 Date/Time Procedure Status Source Growth 07/19/16 22:20 Urine Culture - Final Complete Urine Random Urine Lactobacillus Species Result Diagram: 07/21/16 0605 07/21/16 1225 Assessment and Plan Problem List: (1) Hypertension Plan: Given patient's presentation i.e. young age with hypertension and hypokalemia secondary hypertension is a consideration. Patient's clinical presentation with apparent spontaneous hypokalemia, metabolic acidosis and now the subsequent finding of an adrenal adenoma currently makes hyperaldosteronism a primary consideration but this needs to be confirmed. Also await 24-hour urine for cortisol as well as evaluation for pheochromocytoma. Pheochromocytoma can be associated with hypokalemia but given severity of hypokalemia and presentation this would be a secondary consideration. From the literature I reviewed and elevated aldosterone level greater than 15 ng /dL with an associated plasma aldosterone concentration/plasma renin activity ratio greater than 20 in the setting of spontaneous hypokalemia would be diagnostic for hyperaldosteronism. In addition to 24 urine for catecholamines and metanephrines I will order a plasma fractionated metanephrine level. Blood pressure has improved. Continue current hypertensive regimen with supplementation of potassium. Would avoid adding Aldactone until hyperaldosteronism is either confirmed or ruled out. Aldosterone could interfere with further biochemical testing as far as hyperaldosteronism is concerned. If biochemical studies are indicative of hyperaldosteronism, pheochromocytoma or excessive cortisol secretion the patient will need consultation with endocrinology as well as possible referral to a tertiary institution. Further management would be outside of my field of expertise. This was discussed with the primary care physician. If any further questions please feel free to contact me. (2) Hypokalemia Plan: Suspect secondary to hyperaldosteronism but this needs to be confirmed. Continue potassium supplementation. (3) Adenoma of left adrenal gland (4) Proteinuria Plan: Urinalysis shows evidence of protein urea. Will check her, albumin/ creatinine ratio as well as 24-hour urine protein. Apparently hyper albuminuria can be associated with hyperadrenalism per literature. Again this needs to be confirmed. Problem Qualifiers (1) Hypertension: Qualified Code: I10 - Essential hypertension Crissy Lopez MD Jul 21, 2016 16:05
--- NOTE | 2016-07-21 18:30 | HHI.PR ---
Subjective Remarks Patient is feeling well with no complaints. Blood pressures improved. Most recent potassium level was normal. Objective Vitals Vital Signs Date Time Temp Pulse Resp B/P Pulse Ox O2 Delivery O2 Flow Rate FiO2 07/21/16 17:30 97.8 88 15 143/111 98 07/21/16 13:05 97.1 95 15 143/102 95 07/21/16 08:33 96.9 74 15 147/94 98 07/21/16 04:00 97.4 72 20 158/92 96 07/21/16 02:22 76 07/21/16 00:00 97.3 90 20 167/105 99 07/20/16 20:00 97.8 90 20 185/120 98 I/O 07/20/16 07/20/16 07/20/16 07/21/16 07/21/16 07/21/16 07:00 15:00 23:00 07:00 15:00 23:00 Intake Total 300 ml 850 ml 980 ml 0 ml 1900 ml Output Total 1025 ml 0 ml 2000 ml Balance 300 ml 850 ml -45 ml 0 ml -100 ml Intake Oral 850 ml 980 ml 0 ml 1900 ml IV Total 300 ml Output Urine Total 1025 ml 2000 ml Stool Total 0 ml # Voids 2 3 1 # Bowel Movements 0 0 0 Result Diagram: 07/21/16 0605 07/21/16 1225 Objective Remarks GENERAL: Well-nourished, well-developed very pleasant young adult female patient. SKIN: Warm and dry. HEAD: Normocephalic. EYES: No scleral icterus. No injection or drainage. NECK: Supple, trachea midline. No JVD or lymphadenopathy. CARDIOVASCULAR: Regular rate and rhythm without murmurs, gallops, or rubs. RESPIRATORY: Breath sounds equal bilaterally. No accessory muscle use. GASTROINTESTINAL: Abdomen soft, non-tender, nondistended. EXTREMITIES: No cyanosis, or edema. NEUROLOGICAL: Awake, alert, and oriented x 3. Non-focal. A/P Problem List: (1) Hypokalemia ICD Code: E87.6 Status: Acute (2) Hypertension ICD Code: I10 Status: Acute Assessment and Plan -Severe hypokalemia with hypertension, suspicious for secondary causes of hypertension. Rule out primary hyperaldosteronism. CTA abdomen was negative for renal artery stenosis. MRI of abdomen is consistent with a left adrenal adenoma, findings not consistent with pheochromocytoma. serum catecholamines and metanephrines, 24-hour urine cortisol, plasma renin and aldosterone levels are pending. If renin and aldosterone levels are consistent with primary hyperaldosteronism, she will need an endocrinology evaluation. I greatly appreciate nephrology Dr. Lopez's input. -Continue hydralazine and Cardizem for the blood pressure. -Continue monitoring potassium. -There is no marker assembler administration internship at this hospital. If renin and aldosterone levels are consistent with primary hyperaldosteronism, will need to arrange endocrinology evaluation. -Possible UTI. Initial urine culture with lactobacillus probable contaminant. -Allergic reaction (previous ED visit) now resolved. -DVT prophylaxis with SCDs. Problem Qualifiers (1) Hypertension: Qualified Code: I10 - Essential hypertension Pratibha Diaz MD Jul 21, 2016 18:30
[2016-07-21 18:34] LABS: POTASSIUM 4.2 MEQ/L (3.5-5.1)
[2016-07-21 19:42] LABS: HDL CHOLESTEROL 44.4 MG/DL (40.0-60.0); LDL CHOLESTEROL 141 MG/DL (0-99)
[2016-07-21 21:16] LABS: HEMOGLOBIN A1a 0.8 %; HEMOGLOBIN A1b 0.9 %; HEMOGLOBIN Ao 86.8 %; HEMOGLOBIN F 0.7 %; HEMOGLOBIN P3 3.5 %
[2016-07-21 22:40] LABS: MICRO ALBUMIN RANDOM URINE RAW 84.3 MG/L (0.0-30.0)
[2016-07-21] MEDS: ACETAMINOPHEN 325 MG TAB PO PRN (23:08)
[2016-07-22] VITALS: BP 156/99; PULSE 84; RESP 20; TEMP 97.9; O2SAT 99
[2016-07-22 04:00] VITALS: BP 142/95; PULSE 82; RESP 20; TEMP 96; O2SAT 99
[2016-07-22] MEDS: hydrALAZINE HCL 50 MG TAB PO SCH ×3 (05:12→20:44)
[2016-07-22 06:52] LABS: POTASSIUM 3.6 MEQ/L (3.5-5.1)
[2016-07-22 06:55] LABS: BICARBONATE 28.8 MEQ/L (21.0-32.0)
[2016-07-22] MEDS: DILTIAZEM HCL 60 MG TAB PO SCH ×4 (08:11→20:44)
[2016-07-22] MEDS: NITROFURANTOIN MONOHYD MACROCR 100 MG CAP PO SCH ×2 (08:11→17:53)
[2016-07-22] MEDS: SODIUM CHLORIDE 0.9% FLUSH 5 ML FLUSH FLUSH SCH ×2 (08:12→20:45)
[2016-07-22 08:15] VITALS: BP 109/88; PULSE 92; RESP 16; TEMP 96.3; O2SAT 97
--- NOTE | 2016-07-22 09:55 | HHI.PR ---
Subjective Remarks The patient is nauseated this morning without vomiting and has a headache. No abdominal pain. Blood pressure is normal potassium is normal. Objective Vitals Vital Signs Date Time Temp Pulse Resp B/P Pulse Ox O2 Delivery O2 Flow Rate FiO2 07/22/16 08:15 96.3 92 16 109/88 97 07/22/16 04:00 96.0 82 20 142/95 99 07/22/16 00:00 97.9 84 20 156/99 99 07/21/16 20:05 100 07/21/16 20:00 98.6 91 20 156/98 98 07/21/16 17:30 97.8 88 15 143/111 98 07/21/16 13:05 97.1 95 15 143/102 95 I/O 07/21/16 07/21/16 07/21/16 07/22/16 07/22/16 07/22/16 07:00 15:00 23:00 07:00 15:00 23:00 Intake Total 0 ml 2860 ml 60 ml Output Total 0 ml 2000 ml Balance 0 ml 860 ml 60 ml Intake Oral 0 ml 2860 ml 60 ml IV Total 0 ml 0 ml Output Urine Total 2000 ml Stool Total 0 ml # Voids 1 3 1 # Bowel Movements 0 0 0 Result Diagram: 07/21/16 0605 07/22/16 0627 Objective Remarks GENERAL: Well-nourished, well-developed very pleasant young adult female patient. SKIN: Warm and dry. HEAD: Normocephalic. EYES: No scleral icterus. No injection or drainage. NECK: Supple, trachea midline. No JVD or lymphadenopathy. CARDIOVASCULAR: Regular rate and rhythm without murmurs, gallops, or rubs. RESPIRATORY: Breath sounds equal bilaterally. No accessory muscle use. GASTROINTESTINAL: Abdomen soft, non-tender, nondistended. EXTREMITIES: No cyanosis, or edema. NEUROLOGICAL: Awake, alert, and oriented x 3. Non-focal. A/P Problem List: (1) Hypokalemia ICD Code: E87.6 Status: Resolved (2) Hypertension ICD Code: I10 Status: Chronic (3) Adenoma of left adrenal gland ICD Code: D35.02 Status: Acute (4) possible primary hyperaldosteronism Status: Acute (5) HLD (hyperlipidemia) ICD Code: E78.5 Status: Chronic (6) Hypothyroidism ICD Code: E03.9 Status: Acute Assessment and Plan -Severe hypokalemia with hypertension, suspicious for secondary causes of hypertension. Rule out primary hyperaldosteronism. Blood pressure and potassium levels are now normalized. -CTA abdomen was negative for renal artery stenosis. MRI of abdomen is consistent with a left adrenal adenoma, findings not consistent with pheochromocytoma. serum catecholamines and metanephrines, 24-hour urine cortisol, plasma cortrisol, renin and aldosterone levels are pending. If renin and aldosterone levels are consistent with primary hyperaldosteronism, she will need an endocrinology evaluation. I greatly appreciate nephrology Dr. Lopez's input. -Continue hydralazine and Cardizem for the blood pressure. avoid spironolactone until evaluated by supervisor plate forming, as spironolactone can interfere with testing for primary hyperaldosteronism. -Continue monitoring potassium. We'll begin potassium chloride 20 mEq by mouth twice a day. -There is no supervisor plate forming operations leader at this hospital. If renin and aldosterone levels are consistent with primary hyperaldosteronism, will need to arrange endocrinology evaluation. Per the literature, an elevated aldosterone level greater than 15 ng/dL with an associated plasma aldosterone concentration/ plasma renin activity ratio greater than 20 in the setting of spontaneous hypokalemia would be diagnostic for hyperaldosteronism. -Per the lab, the renin is sent out to [facility] and takes 2-4 days to return after they receive it (and they have not yet received a sample), aldosterone concentration was sent to [facility] and that will be available next or Monday. -We will arrange mandatory outpatient endocrinology referral so the patient has appropriate follow-up. -We will arrange an appointment at the [facility] for next Monday or Monday so the patient could have a recheck of her blood pressure and potassium levels. -Elevated TSH, probable hypothyroidism. Will check free T3 and free T4 and start Synthroid if indicated. -Hyperlipidemia. We'll start Lipitor. -Possible UTI. Initial urine culture with lactobacillus probable contaminant. Will DC Macrobid. -Nausea. We'll give Zofran and monitor. -Allergic reaction (previous ED visit) now resolved. -DVT prophylaxis with SCDs. Discharge Planning Discharge home later today once the above arrangements are made. Problem Qualifiers (1) Hypertension: Qualified Code: I10 - Essential hypertension Emily,Pratibha Rhonda MD Jul 22, 2016 09:55
[2016-07-22] MEDS ORDERED: POTA20TA5 PO (09:57)
[2016-07-22] MEDS ORDERED: SYNT25TA PO (09:57)
[2016-07-22] MEDS ORDERED: HYDR50TA15 PO (09:57)
[2016-07-22] MEDS ORDERED: LIPI40TA PO (09:57)
[2016-07-22] MEDS ORDERED: CARD180C5 PO (09:57)
[2016-07-22] MEDS: ONDANSETRON HCL 4 MG/2 ML VIAL IV PUSH PRN ×2 (09:58→15:42)
[2016-07-22] MEDS: POTASSIUM CHLORIDE 20 MEQ CONTROLLED RELEASE TAB PO SCH ×2 (09:58→20:44)
--- NOTE | 2016-07-22 09:59 | HHI.DCPOC ---
Discharge Care Plan Diagnosis: (1) possible primary hyperaldosteronism (2) HLD (hyperlipidemia) (3) Hypertension (4) Hypothyroidism (5) Hypokalemia (6) Adenoma of left adrenal gland (7) Weakness Goals to Promote Your Health * To prevent worsening of your condition and complications * To maintain your health at the optimal level Directions to Meet Your Goals Take your medications as prescribed Follow your dietary instruction Follow activity as directed Keep your appointments as scheduled Take your immunizations and boosters as scheduled If your symptoms worsen call your PCP, if no PCP go to Urgent Care Center or Emergency Room Smoking is Dangerous to Your Health. Avoid second hand smoke Call the 24-hour hour crisis hotline for domestic abuse at Pratibha Diaz MD Jul 22, 2016 09:59
--- NOTE | 2016-07-22 10:02 | HHI.DS ---
cc: Gabbie Peralta MD Discharge Summary Admission Date Jul 20, 2016 at 00:25 Discharge Date: Jul 23, 2016 Admitting Diagnosis periodic hypokalemic paralysis (1) Hypokalemia ICD Code: E87.6 (2) Hypertension ICD Code: I10 (3) Adenoma of left adrenal gland ICD Code: D35.02 (4) possible primary hyperaldosteronism (5) HLD (hyperlipidemia) ICD Code: E78.5 (6) Hypothyroidism ICD Code: E03.9 (7) Nausea & vomiting ICD Code: R11.2 (8) Weakness ICD Code: R53.1 (9) Secondary hypertension, unspecified ICD Code: I15.9 Procedures None Brief History - From Admission This is a pleasant 25-year-old female with past medical history of hypertension who presented to the ER today after awaking from a nap and findings that her hands and legs were weak. She was able to walk with assistance from her boyfriend. Of note the patient had been in the ER this morning for an allergic reaction that she thinks is from wearing a mask. She was observed in the emergency department and given steroids, Pepcid and Benadryl. She was then discharged home. She took a nap and woke with the above symptoms. She denied any slurred speech, unilateral weakness or paresthesias. Nothing like this has ever happened to her before. The patient was diagnosed with high blood pressure in the same ER 2 years ago but does not have health insurance and has not taken anything for her hypertension. She has never been told that she has hypokalemia. The patient does not see a doctor, last time she was seen by . was in the ER 2 years ago. In the emergency department she was found to have severe hypokalemia with potassium of 1.7. Magnesium level was normal. She was given IV potassium and by mouth potassium. Her potassium has improved to 2.4 and her symptoms of weakness of now resolved. The patient denies any nausea, vomiting, diarrhea. She states that she eats a good diet and plenty of bananas. She does not take any diuretics or anything [id number] other than ibuprofen. There is no family history of hypokalemia or transient paralysis per the patient 's knowledge. She does snore at night but the boyfriend has not noticed any apnea. She denies morning headaches. CBC/BMP: 07/21/16 0605 07/22/16 0627 Significant Findings Laboratory Tests Test 07/19/16 07/19/16 07/20/16 07/20/16 22:05 22:20 03:30 09:10 Red Blood Count 5.62 MIL/MM3 (4.00-5.30) Hematocrit 46.2 % (35.0-46.0) Mean Corpuscular Hemoglobin 26.1 PG (27.0-34.0) Mean Corpuscular Hemoglobin 31.8 % Concent (32.0-36.0) Neutrophils (%) (Auto) 88.6 % (16.0-70.0) Lymphocytes (%) (Auto) 7.8 % (9.0-44.0) Lymphocytes # (Auto) 0.6 TH/MM3 (1.0-4.8) Potassium Level 1.7 MEQ/L 2.0 MEQ/L 2.4 MEQ/L (3.5-5.1) (3.5-5.1) (3.5-5.1) Carbon Dioxide Level 32.5 MEQ/L (21.0-32.0) Estimat Glomerular Filtration 69 ML/MIN (>89) Rate Random Glucose 222 MG/DL (74-106) Urine Turbidity CLOUDY (CLEAR) Urine Protein 300 OR GREATER mg/dL (NEG-TRACE) Urine Glucose (UA) 250 mg/dL (NEG) Urine Ketones TRACE mg/dL (NEG) Urine Occult Blood MOD (NEG) Urine WBC Clumps OCC (NONE) Urine Bacteria MOD /hpf (NONE) Serum Osmolality 302 MOSM/KG (275-295) Test 07/20/16 07/21/16 07/21/16 07/21/16 17:50 00:00 06:05 18:17 Potassium Level 2.4 MEQ/L 2.7 MEQ/L 2.7 MEQ/L (3.5-5.1) (3.5-5.1) (3.5-5.1) White Blood Count 11.6 TH/MM3 (4.0-11.0) Carbon Dioxide Level 34.8 MEQ/L (21.0-32.0) Calcium Level 8.2 MG/DL (8.5-10.1) Triglycerides Level 208 MG/DL (42-150) Cholesterol Level 227 MG/DL (120-200) LDL Cholesterol 141 MG/DL (0-99) Thyroid Stimulating Hormone 9.220 uIU/ML 3rd Gen (0.358-3.740) Test 07/21/16 07/22/16 20:20 06:27 Urine Microalbumin/Creatinine 78 MG/G CRE Ratio (0-30) Calcium Level 8.4 MG/DL (8.5-10.1) Imaging Last Impressions Abdomen MRI 07/21/16 0000 Signed Impressions: Service Date/Time: July 14:19 - CONCLUSION: 1. 2.8 cm left adrenal adenoma. Remainder of abdomen MRI unremarkable. Brenden Crenshaw MD Abdomen CTA 07/21/16 0000 Signed Impressions: Service Date/Time: July 08:06 - CONCLUSION: 1. 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 The renal arteries are widely patent. There is no significant renal artery stenosis. 2. 2.3 x 3.0 cm left adrenal mass likely representing an adrenal adenoma. Please see above discussion. Abad Alicia MD Head CT [id number] Signed Impressions: Service Date/Time: Tuesday, July 19, 2016 22:48 - CONCLUSION: 1. No evidence of acute intracranial pathology. No masses are identified. Sterling Zhong MD PE at Discharge GENERAL: Well-nourished, well-developed very pleasant young adult female patient. SKIN: Warm and dry. HEAD: Normocephalic. EYES: No scleral icterus. No injection or drainage. NECK: Supple, trachea midline. No JVD or lymphadenopathy. CARDIOVASCULAR: Regular rate and rhythm without murmurs, gallops, or rubs. RESPIRATORY: Breath sounds equal bilaterally. No accessory muscle use. GASTROINTESTINAL: Abdomen soft, non-tender, nondistended. EXTREMITIES: No cyanosis, or edema. NEUROLOGICAL: Awake, alert, and oriented x 3. Non-focal. Hospital Course -Severe hypokalemia with hypertension, suspicious for secondary causes of hypertension. Rule out primary hyperaldosteronism. Blood pressure and potassium levels are now normalized. -CTA abdomen was negative for renal artery stenosis. Cortisol level normal. MRI of abdomen is consistent with a left adrenal adenoma, findings not consistent with pheochromocytoma. serum catecholamines and metanephrines, 24- hour urine cortisol, renin and aldosterone levels are pending. If renin and aldosterone levels are consistent with primary hyperaldosteronism, she will need an endocrinology evaluation. I greatly appreciate nephrology Dr. Lopez's input. -Continue hydralazine and Cardizem for the blood pressure. avoid spironolactone until evaluated by oil heaterman, as spironolactone can interfere with testing for primary hyperaldosteronism. -Continue monitoring potassium. We'll begin potassium chloride 20 mEq by mouth twice a day. -There is no oil heaterman oncology navigator at this hospital. If renin and aldosterone levels are consistent with primary hyperaldosteronism, will need to arrange endocrinology evaluation. Per the literature, an elevated aldosterone level greater than 15 ng/dL with an associated plasma aldosterone concentration/ plasma renin activity ratio greater than 20 in the setting of spontaneous hypokalemia would be diagnostic for hyperaldosteronism. -Per the lab, the renin is sent out to [facility] and takes 2-4 days to return after they receive it (and they have not yet received a sample), aldosterone concentration was sent to [employer] [facility] and that will be available next or Monday. -We will arrange mandatory outpatient endocrinology referral so the patient has appropriate follow-up. -We will arrange an appointment at the [facility] for next Monday or Monday so the patient could have a recheck of her blood pressure and potassium levels. -Elevated TSH, subclinical hypothyroidism. We'll start low-dose Synthroid. -Hyperlipidemia. We'll start Lipitor. -Possible UTI. Initial urine culture with lactobacillus probable contaminant. Will DC Macrobid. -Nausea with emesis 2. Now resolved. -Allergic reaction (previous ED visit) now resolved. Patient has a an appointment at the [facility] next Monday with Dr. Peralta. She will get a BMP before that. I stressed the importance of outpatient endocrinology evaluation to the patient. Of note she did recently get employed full-time at [employer] and states she will be getting health insurance through that job. Pt Condition on Discharge: Stable Discharge Disposition: Discharge Home Discharge Time: > 30 minutes Discharge Instructions DIET: Follow Instructions for: Heart Healthy Diet Activities you can perform: Regular-No Restrictions New Medications: Diltiazem CD 24 HR (Cardizem CD 24 HR) 180 Mg Caper 180 MG PO DAILY Blood Pressure Management #30 Ref 0 CAP Levothyroxine (Synthroid) 25 Mcg Tab 25 MCG PO DAILY Thyroid #30 Ref 0 TAB Atorvastatin (Lipitor) 40 Mg Tab 40 MG PO HS Cholesterol Management #30 TAB Hydralazine (Hydralazine) 50 Mg Tab 50 MG PO Q8HR Blood Pressure Management #90 TAB Potassium Chloride Microencaps (Potassium Chloride Microencaps) 20 Meq Tab 20 MEQ PO Q12HR Electrolyte Replacement #60 TAB Pratibha Diaz MD Jul 22, 2016 10:02
[2016-07-22] MEDS: ACETAMINOPHEN 325 MG TAB PO PRN ×2 (11:13→15:42)
[2016-07-22 13:34] LABS: FREE T3 3.73 PG/ML (2.18-3.98); FREE T4 1.56 NG/DL (0.76-1.46)
[2016-07-22 16:16] VITALS: BP 139/83; PULSE 77; RESP 18; TEMP 97.4; O2SAT 98
[2016-07-22 17:58] VITALS: BP 146/96; PULSE 84; O2SAT 97
[2016-07-22 20:23] VITALS: BP 139/99; PULSE 91; RESP 22; TEMP 97.8; O2SAT 97
[2016-07-22] MEDS ORDERED: ATORVASTATIN 40 MG TAB PO SCH (21:00)
[2016-07-23 00:23] VITALS: BP 155/98; PULSE 82; RESP 16; TEMP 97.8; O2SAT 97
[2016-07-23 01:30] VITALS: BP 146/78
[2016-07-23] MEDS: hydrALAZINE HCL 50 MG TAB PO SCH ×2 (05:03→12:16)
[2016-07-23] MEDS: NITROFURANTOIN MONOHYD MACROCR 100 MG CAP PO SCH ×2 (09:00→09:41)
[2016-07-23] MEDS: POTASSIUM CHLORIDE 20 MEQ CONTROLLED RELEASE TAB PO SCH ×2 (09:00→09:41)
[2016-07-23] MEDS: DILTIAZEM HCL 60 MG TAB PO SCH ×3 (09:00→12:16)
[2016-07-23 09:10] VITALS: BP 128/86; PULSE 89; RESP 16; TEMP 97.6; O2SAT 99
[2016-07-23] MEDS: SODIUM CHLORIDE 0.9% FLUSH 5 ML FLUSH FLUSH SCH (09:41)
[2016-07-23] MEDS: ONDANSETRON HCL 4 MG/2 ML VIAL IV PUSH PRN (09:44)
[2016-07-23 11:34] LABS: BICARBONATE 27.7 MEQ/L (21.0-32.0)
[2016-07-23] MEDS ORDERED: METOCLOPRAMIDE HCL 10 MG/2 ML VIAL IV PUSH SCH (12:00)
[2016-07-27] MEDS ORDERED: POTA20TA5 PO ×2 (14:49→14:51)
[2016-07-27] MEDS ORDERED: LIPI40TA PO ×2 (14:49→14:51)
[2016-07-27] MEDS ORDERED: SYNT25TA PO ×2 (14:49→14:51)
[2016-07-27] MEDS ORDERED: CARD180C5 PO ×2 (14:49→14:51)
[2016-07-27] MEDS ORDERED: HYDR50TA15 PO ×2 (14:49→14:51)
[2016-07-28 15:20] LABS: METANEPHRINE 24 COLLECTION DUR 24 h (())
[2016-07-29 18:36] LABS: DOPAMINE LESS THAN 40 pg/mL (()); EPINEPHRINE LESS THAN 20 pg/mL (()); NOREPINEPHRINE 78 pg/mL (())
== END 2016-07-23 13:19 | disposition home or self-care (01) | DRG 641 ==
LOC: PHED 20:26 → PHEDA 07-20 00:25 → PHEDH 07-20 04:25 → PH3A 07-20 08:19
PROVIDERS: ADMIT Family Medicine; ATTEND Family Medicine
DX: E87.6 Hypokalemia (principal); E87.4 Mixed disorder of acid-base balance; I15.9 Secondary hypertension, unspecified; I10 Essential (primary) hypertension; Z91.048 Other nonmedicinal substance allergy status; Z91.14 Patient's other noncompliance with medication regimen; D35.02 Benign neoplasm of left adrenal gland; E26.9 Hyperaldosteronism, unspecified; E78.5 Hyperlipidemia, unspecified; E03.9 Hypothyroidism, unspecified
CPT/HCPCS: 70450; 74175; 74183; 76937; 80048; 80053; 80061; 81001; 82043; 82088; 82384; 82530; 82533; 82550; 82570; 83036; 83735; 83835; 83930; 83935; 84132; 84133; 84157; 84244; 84439; 84443; 84481; 84703; 85025; 87086; 93005; 96365; 96375; A9579; J0696; J2060; J2270; J2405; J2765; J3475; J3480; P9612; Q9967